=== PATIENT | female | born 1965 | race Caucasian/White ===

== ENCOUNTER → 2019-09-13 12:57 | Outpatient (BNVA) | payer OTHER, SELFPAY | PROVIDERS: Family Provider Family Medicine; PCP Family Medicine; Visit Provider Specialist | DX: M50.10 Cervical disc disorder with radiculopathy, unspecified cervical region; M51.16 Intervertebral disc disorders with radiculopathy, lumbar region; S06.0X9D Concussion with loss of consciousness of unspecified duration, subsequent encounter; X58.XXXD Exposure to other specified factors, subsequent encounter | CPT/HCPCS: 99214 ==

== ENCOUNTER → 2019-12-06 15:15 | Outpatient (BNVA) | payer OTHER, SELFPAY | PROVIDERS: Family Provider Family Medicine; PCP Family Medicine; Visit Provider Specialist | DX: F07.81 Postconcussional syndrome (principal); M51.16 Intervertebral disc disorders with radiculopathy, lumbar region | CPT/HCPCS: 99213 ==

== ENCOUNTER 2020-03-16 09:45 | Outpatient (CLI) | payer OTHER, SELFPAY ==
--- NOTE | 2020-03-16 09:30 | IR_ITS ---
WS: [id number] EXAM: LUMBAR AND CERVICAL MYELOGRAM DATE OF EXAMINATION: 03/16/2020, 1055 hours COMPARISON: MRI of the lumbar spine and MRI of the cervical spine. HISTORY: Patient is 54 years old with neck pain, right arm pain, low back pain with radiculopathy. REAL ESTATE AGENT: Bandar Downs M.D. FLUOROSCOPY TIME: 2.8 minutes. 13 mL Omnipaque 300 was utilized for the examination. FINDINGS: Procedure was discussed with the patient. Mean wrist discussed were bleeding and infection possible n erve and vascular injury. Possible seizure activity, spinal headache of the thecal sac puncture, poss ible failed procedure. Questions were answered and consent was obtained. Patient was placed on the wy uoroscopic table in a prone position. The lower back was prepped and draped in sterile fashion. 1% li docaine was infiltrated into the skin and subcutaneous tissues followed by advancement of a 22-gauge needle into the thecal sac at the L3-4 level from a left sublaminar approach. With return of clear ce rebral spinal fluid a total of 13 mL of Omnipaque 300 contrast was injected into the thecal sac. Need le was removed and hemostasis was obtained. Multiple spot images as well as overhead imaging was obta ined. The lumbar spine thecal sac is capacious. Exiting nerve sleeves are seen bilaterally L3 and inferiorl y. Erect lateral flexion-extension views shows degenerative spondylosis changes L2-3 and L3-4 levels with disc bulging and slight narrowing the disc space with slight effacement anterior thecal sac. No definite stenosis is seen. Flexion-extension views show no evidence of instability. Imaging of the cervical spine shows normal outline of the thecal sac. On the left no nursing cut off is seen. On the right there is slight cut off of the right C6 nerve sleeve. Crosstable lateral imagin g in the cervical spine is limited. IR/IR myelogram spine cervic/lumb IMPRESSION: Degenerative spondylosis changes at L2-3 and L3-4 levels indenting on the anter ior thecal sac without canal or neural foraminal stenosis. Degenerative spondylosis changes with cut off of the right C6 nerve seen. CT re sults pending.
[2020-03-16] MEDS: iohexol 300 mg/mL 50 mL Btl INTRATHECA (11:22)
--- NOTE | 2020-03-16 11:30 | CT_ITS ---
WS: [id number] EXAM: CT cervical spine w con [id number] DATE OF EXAMINATION: 03/16/2020, 1120 hours COMPARISON: Cervical spine myelogram from the same date as well as cervical spine MRI from 05/16/2019. HISTORY: 54 years old with neck pain and right arm pain. TECHNIQUE: Transaxial computed tomography images obtained through the cervical spine with images viewed in soft tissue and bone window with reconstructions. Iterative reconstruction dose reduction technique was utilized during the performance of the examinat ion. DLP: 3.[address] scans at [facility] use at least one of these dose optimization techniques: automat ed exposure control; mA and/or kV adjustment per patient size (includes targeted exams where dose is matched to clinical indication); or iterative reconstruction. FINDINGS: The visualized inferior intracranial contents are unremarkable. Intrathecal contrast outlined the CSF spaces. Mastoid air cells are pneumatized and well aerated. Predens space and prevertebral soft tiss ue plane are normal. The cervical and upper thoracic cord appears of normal caliber. No extensive deg enerative spondylosis changes C2-3, C3-4 or C4-5 levels. C5-6 level shows degenerative spondylosis changes with slight bilateral uncovertebral joint hypertrop hy changes. The AP diameter of the canal is about 9 mm consistent with mild stenosis. Broad-based dis c herniation at this level flattens the anterior thecal sac. Bilateral uncovertebral joint hypertroph y changes are demonstrated which appears to have slight mass effect upon bilateral C6 nerve sleeves. C6-7, C7-T1 and upper thoracic disc levels are unremarkable. Paraspinal muscular is normal in appearance. Lung apices are clear. Thyroid gland is normal in appear ance. Shotty adenopathy in the neck presumably reactive in nature. CT/CT cervical spine w con [id number] IMPRESSION: Degenerative spondylosis changes C5-6 level with a broad-based shallow disc her niation with mild central canal stenosis and some degree of bilateral neural fo raminal stenosis.
--- NOTE | 2020-03-16 12:00 | CT_ITS ---
WS: [id number] EXAM: CT lumbar spine w con [id number]: Post myelogram DATE OF EXAMINATION: 03/16/2020, 1125 hours COMPARISON: Same-day mammogram. HISTORY: 54 years old with low back pain with right hip and thigh pain with tingling. TECHNIQUE: Transaxial computed tomography images obtained through the lower thoracic, lumbar spine upper sacral segments with images viewed in soft tissue and bone window with reconstructions. Iterative reconstruction dose reduction technique was utilized during the performance of the examinat ion. DLP: 1633.[address] scans at [facility] use at least one of these dose optimization techniques: automat ed exposure control; mA and/or kV adjustment per patient size (includes targeted exams where dose is matched to clinical indication); or iterative reconstruction. FINDINGS: Examination extends from mid T9 level through the S4 segment. Cord ends at the L1 level. Distal cord is normal in appearance. T9-10 and T10-11 disc levels: Normal T11-12: Slight narrowing of the disc space with slight degenerative spondylosis changes with minimal posterior spurring. No protrusion, canal or neural foraminal stenosis. T12-L1 and L1-2 disc levels: Normal. L2-3: Slight narrowing of the disc space with anterior and posterior spurring. No protrusion, canal or neur al foraminal stenosis. L3-4: Minimal degenerative spondylosis changes with minimal anterior spurring. Minimal posterior disc bulging. No protrusion, canal or neural foraminal stenosis. L4-5: Normal discs level other than minimal anterior spurring on the left. L5-S1: There are findings of a disc herniation left paracentral to right lateral recess position exte nding posteriorly with mass effect upon the thecal sac and mass effect upon the right S1 nerve sleeve . Slight calcification posterior annulus of the disc is demonstrated. No canal or neural foraminal st enosis. Paraspinal musculature is fairly normal in appearance. Visualized lower thoracic and abdominal aorta is normal in caliber. CT/CT lumbar spine w con [id number] IMPRESSION: Disc herniation L5-S1 level as described with mass effect upon the thecal sac a s well as the right S1 nerve sleeve. Slight degenerative changes T11-12, L2-3 and L3-4 levels as described.
== END 2020-03-16 09:46 | disposition home or self-care (01) ==
LOC: RADWPI 09:49
PROVIDERS: Family Provider Family Medicine; PCP Family Medicine; Visit Provider Licensed Practical Nurse
DX: M25.551 Pain in right hip (principal); M51.27 Other intervertebral disc displacement, lumbosacral region; M79.601 Pain in right arm; M47.812 Spondylosis without myelopathy or radiculopathy, cervical region; M48.02 Spinal stenosis, cervical region; M47.816 Spondylosis without myelopathy or radiculopathy, lumbar region
CPT/HCPCS: 62305; 72040; 72120; 72126; 72132; Q9967

== ENCOUNTER → 2020-03-28 11:28 | Outpatient (BNVA) | payer OTHER, SELFPAY | PROVIDERS: Family Provider Family Medicine; PCP Family Medicine; Visit Provider Licensed Practical Nurse | DX: M48.02 Spinal stenosis, cervical region (principal); M50.020 Cervical disc disorder with myelopathy, mid-cervical region, unspecified level; G56.03 Carpal tunnel syndrome, bilateral upper limbs; M51.17 Intervertebral disc disorders with radiculopathy, lumbosacral region | CPT/HCPCS: 99214 ==

== ENCOUNTER → 2020-07-09 09:09 | Outpatient (BNVA) | payer OTHER, SELFPAY | PROVIDERS: Family Provider Family Medicine; PCP Family Medicine; Referring Provider Family Medicine; Visit Provider Specialist | DX: G56.03 Carpal tunnel syndrome, bilateral upper limbs (principal) | CPT/HCPCS: 73110 ==

== ENCOUNTER 2020-07-09 13:46 | Outpatient (CLI) | payer OTHER, SELFPAY | END 2020-07-09 13:47 | disposition home or self-care (01) | LOC: SPT 13:46 | PROVIDERS: PCP Family Medicine; Visit Provider Specialist | DX: Z46.89 Encounter for fitting and adjustment of other specified devices (principal); G56.01 Carpal tunnel syndrome, right upper limb | CPT/HCPCS: 87635; L3908 ==

== ENCOUNTER 2020-07-13 05:46 | Day surgery (SDC) | payer OTHER, SELFPAY ==
[2020-07-12 14:46] VITALS: BMI 34.3
[2020-07-13 06:01] VITALS: BP 132/78; PULSE 90; RESP 16; TEMP 36.9; O2SAT 98
[2020-07-13] MEDS: sodium chloride 0.9% 1,000 ML 30 ML IV (06:25)
[2020-07-13] MEDS: scopolamine 1.5 Patch 1 PATCH TRANSDERMA (06:26)
--- NOTE | 2020-07-13 06:29 | P.ANESASSM_ITS ---
Pre-Anesthetic Assessment Pre-Anesthetic Assessment: Height/Weight: Height 1.6 m Weight 87.997 kg Temp Pulse Resp BP Pulse Ox 98.4 F 90 16 132/78 98 07/13/20 06:01 07/13/20 06:01 07/13/20 06:01 07/13/20 06:01 07/13/20 06:01 Preop Diagnosis: Right carpal tunnel syndrome Proposed Procedure: Operation Date: 07/13/20 07:00 Proposed Procedures p right Carpal Tunnel Release 99642 g56.00(Right) - Nola Frank MD Last intake: Intake Last Liquid Date 07/12/20 Last Liquid Time 21:00 Last Solid Date 07/12/20 Last Solid Time 21:00 Social: Social History: Alcohol (occ) and No tobacco Exam: Pre-Anes Outpt Exam: alert, oriented x 3, clear to auscultation bilaterally and regular rate & rhythm Airway: Submandibular: WNL Cervical ROM: WNL MP: 1 Additional comments: teeth ok History/ROS: No significant history except as noted Pulmonary: Pulmonary: None reported CV/HEM: CV/HEM: None reported : : None reported Hepatic: Hepatic: None reported GI: GI: None reported Metabolic: Metabolic: None reported Musc/skel: Musc/skel: Lower Back Pain Neuropsych: Neuropsych: Neuropathy Meds/Allergies Current Medications: Current Medications Generic Name Dose Route Start Last Admin Trade Name Freq PRN Reason Stop Dose Admin Sodium Chloride 1,000 mls @ 30 ml s/hr 07/13/20 06:00 07/13/20 06:25 Sodium Chloride 0.9% IV 07/14/20 05:59 30 mls/hr .Q24H ZAY Administration PFSH Anesthesia PFSH: Medical History Cervical disc disorder with myelopathy of mid-cervical region 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
[2020-07-13] MEDS: CELEcoxib 200 mg Capsule 400 MG PO (06:34)
--- NOTE | 2020-07-13 06:57 | W.PM.OPSUD ---
Surgery/Procedure H&P Update DATE OF PROCEDURE: July 13, 2020 DATE H&P PERFORMED: 07/09/20 H&P UPDATE INFORMATION: I have reviewed H&P completed within last 30 days, I have examined patient prior to procedure, No changes to prior documentation and H&P is in [facility] EMR on date indicated PREOP DIAGNOSIS: Right carpal tunnel syndrome PLANNED PROCEDURE: Operation Date: 07/13/20 07:00 Proposed Procedures p right Carpal Tunnel Release [id number] g56.00(Right) - Nola Frank MD Related Problem List Diagnoses (1) Carpal tunnel syndrome of right wrist:
[2020-07-13 07:51] VITALS: BP 143/74; PULSE 83; RESP 16; TEMP 36.3; O2SAT 96
--- NOTE | 2020-07-13 07:57 | P.OP_ITS ---
Operative Report Date of procedure: July 13, 2020 Pre-op Diagnosis: Right carpal tunnel syndrome Post-op diagnosis: same Procedure Done: Right carpal tunnel release Implants: None Pathology: none sent Surgeon: Nola Frank Marker Delivery: [facility] OR technicians Anesthesia: MAC (With Sheldon block) Estimated blood loss (mL): 5 Tourniquet time (min): 30 Tourniquet time: At 250 mmHg IV fluids (mL): 600 Urine output (mL): 0 Urine output: No Black Complications: None Findings: Compression across the median nerve consistent with carpal tunnel syndrome Condition: stable Disposition: same day Brief History: This 54-year-old woman presented with complaints of symptoms in the right hand consistent with carpal tunnel syndrome. She wished to proceed with carpal tunnel release. Risks and complications were discussed with her. Consents were signed preoperatively. Questions were answered. She was scheduled for the above procedure. Procedure: The patient was brought to the operating theater. The patient had a Sheldon block with MAC. The tourniquet was elevated to 250 mmHg for a total tourniquet time of 30 minutes. The patient was also given Ancef 2 g preoperatively. The arm was then prepped and draped with DuraPrep in usual fashion with the arm draped free. A surgical pause was performed. At the time, the surgical pause, we confirmed the site and side of surgery. We also confirmed the patient's identity, appropriate and timely administration of preoperative antibiotics and preoperative surgical markings. An incision was then made along the thenar crease. The incision crossed the wrist joint in a curvilinear fashion. Dissection continued through skin and soft tissues using a scalpel. The palmaris longus was identified along with the transverse carpal ligament. Each of these was released carefully to avoid injury to the median nerve. We were able to dissect gently into the carpal canal which was noted to be quite tight with significant compression across the median nerve. The nerve was visualized and was an hourglass shape. The canal was subsequently palpated to assure there was no bony encroachment upon the canal. The canal was then palpated distally and proximally to assure that my small finger was passed easily without impingement. Finding this to be so, attention was directed to closure. The wound was irrigated with ropivacaine plain. It was then closed with 3-0 nylon in an interrupted mattress fashion. Sterile dressing was then placed consisting of Xeroform gauze, fluffed fluffs, sterile soft roll, a volar splint, and an Rudi wrap. The tourniquet was released after 30 minutes. There were no complications. There were no specimens. The procedure was well tolerated. Plan is the patient will be discharged home. Associated Problem List Diagnoses (1) Carpal tunnel syndrome of right wrist:
[2020-07-13 08:13] VITALS: BP 122/81; PULSE 77; RESP 16; O2SAT 99
== END 2020-07-13 08:27 | disposition home or self-care (01) ==
PROVIDERS: PCP Family Medicine; Visit Provider Specialist
PROC: (CPT 64721; principal; 2020-07-13 07:00)
DX: G56.01 Carpal tunnel syndrome, right upper limb (principal); Z82.49 Family history of ischemic heart disease and other diseases of the circulatory system
CPT/HCPCS: 64721; 12345; J0131; J0690; J2250; J2704; J3490; J7030

== ENCOUNTER 2020-10-17 13:21 | Outpatient (CLI) | payer OTHER, SELFPAY ==
--- NOTE | 2020-10-17 13:27 | MM_ITS ---
WS: [id number] BILATERAL SCREENING DIGITAL MAMMOGRAM WITH CAD HISTORY: SCREENING COMPARISON: 03/24/2019, 02/02/2018 and 06/17/2016 and 03/23/2015 Bilateral CC and MLO views submitted. Computer aided detection analyzed. Breast composition: There are scattered areas of fibroglandular density. No suspicious masses, microc alcifications or architectural distortion. Asymmetry in the central LEFT breast seen on the CC projec tion has been stable over multiple prior years. MM/[place] [id number] IMPRESSION: BI-RADS: 2-Benign FOLLOW UP: 1 Year Follow-up
== END 2020-10-17 13:22 | disposition home or self-care (01) ==
PROVIDERS: PCP Family Medicine; Visit Provider Obstetrics & Gynecology
DX: Z12.31 Encounter for screening mammogram for malignant neoplasm of breast (principal)
CPT/HCPCS: 77067

== ENCOUNTER → 2021-01-07 07:54 | Outpatient (BNVA) | payer OTHER, SELFPAY | PROVIDERS: PCP Family Medicine; Visit Provider Specialist | DX: G43.909 Migraine, unspecified, not intractable, without status migrainosus (principal); M50.020 Cervical disc disorder with myelopathy, mid-cervical region, unspecified level; G56.02 Carpal tunnel syndrome, left upper limb | CPT/HCPCS: 99213 ==

== ENCOUNTER → 2021-08-22 15:11 | Outpatient (BNVA) | payer OTHER, SELFPAY | PROVIDERS: PCP Family Medicine; Visit Provider Physician Assistant | DX: M50.020 Cervical disc disorder with myelopathy, mid-cervical region, unspecified level (principal) | CPT/HCPCS: 72050 ==

== ENCOUNTER 2021-11-05 15:39 | Outpatient (CLI) | payer OTHER, SELFPAY | END 2021-11-05 15:40 | disposition home or self-care (01) | LOC: SPT 15:39 | PROVIDERS: PCP Family Medicine; Visit Provider Orthopaedic Surgery | DX: Z46.89 Encounter for fitting and adjustment of other specified devices (principal); M47.22 Other spondylosis with radiculopathy, cervical region | CPT/HCPCS: 97760; L0174 ==

== ENCOUNTER 2021-11-29 09:20 | Day surgery (SDC) | payer OTHER, SELFPAY ==
--- NOTE | 2021-11-26 14:11 | ANES.PREANE2 ---
Pre-Anesthetic Assessment Height/Weight: Height 1.6 m Preop Diagnosis: Right carpal tunnel syndrome Operation Date: 11/29/21 10:35 Proposed Procedures p ACDF c5/6 [id number]/64183/m47.22(Not Applicable) - Mando Miller, Familial anesthetic complications: PONV once (after an abdominal surgery) Social No alcohol and No tobacco Exam alert, oriented x 3, clear to auscultation bilaterally and regular rate & rhythm Airway Mallampati: Class I Dentition: full Pulmonary None reported CV/HEM None reported None reported Hepatic None reported GI None reported Metabolic None reported Musc/skel Lower Back Pain Neuropsych Anxiety and Depression Anesthetic Plan ASA status: 2 Anesthesia: General Risk of > 500 ml blood loss (7ml/kg in children): No Medications/Allergies Home Medications Medication Instructions Recorded Confirmed Last Taken Type alprazolam 0.25 mg tablet (Xanax) 0.25 mg PO DAILY PRN 09/13/19 11/05/21 Unknown History fluoxetine 10 mg capsule 10 mg PO DAILY 09/13/19 11/05/21 07/12/20 History spironolactone 25 mg tablet 50 mg PO DAILY tab 09/13/19 11/05/21 07/12/20 History (Aldactone) melatonin 10 mg tablet 10 mg PO BEDTIME 01/17/20 11/05/21 07/12/20 History loratadine 10 mg tablet (Claritin) 10 mg PO DAILY 11/07/20 11/05/21 Unknown History amitriptyline 25 mg tablet 25 mg PO DAILY tab 01/07/21 11/05/21 Unknown History [place] J Collar #1 ea 11/05/21 11/05/21 Unknown Rx Allergies Allergy/AdvReac Type Severity Reaction Status Date / Time [facility] AdvReac nausea/hot Verified 11/05/21 15:05 sensation [facility] Anesthesia Medical History Anxiety and depression Diagnosed in her 40s and has been on medication managed by her primary care provider for many years. Does not see a therapist No pertinent past medical history Denies diabetes, asthma, hypertension, seizures, DVT/PE PCP: Dr. Rivera Postconcussive syndrome Is on Topamax to help with post concussive headaches. Surgical History History of hysterectomy With bilateral salpingo-oophorectomy done by vertical midline infraumbilical incision for benign fibroid performed in 2009 S/P section x 1 -Pfannenstiel incision S/P laparoscopy Take down of adhesions and endometriosis, performed in 1996 Family History Father Hypertension Hyperlipidemia Heart disease Grandmother Breast cancer maternal, diagnosed at age 50 Mother Stroke Grandfather Hypertension paternal Heart disease paternal Denies family history of Colon cancer Ovarian cancer Diabetes Uterine cancer Thyroid condition Social History Smoking and tobacco status: never smoked Alcohol intake: current Alcohol intake frequency: few times a month Household members: spouse Marital status: Current occupational status: employed Current occupation: Refining Equipment Operator [employer] History of recent travel: No Data Anesthesia Cardiac Studies: No Data to Display
[2021-11-26 14:25] VITALS: BMI 34.9
[2021-11-29] VITALS (10 sets, daily range): BP systolic 129–146; BP diastolic 78–94; PULSE 76–96; RESP 14–18; TEMP 36.1–37.2; O2SAT 94–100
--- NOTE | 2021-11-29 | XR_ITS ---
WS: [id number] Cervical spine, C-arm fluoroscopy, 11/29/2021 Clinical Data: cervical spondylosis with radiculopathy Comparison: None. Findings: Dr. Miller performed a anterior cervical disc fusion C5-C6 with a disc spacer at C5-C6. XR/XR cervical spine 3V* [id number] Impression: Anterior cervical disc fusion C5-C6.
--- NOTE | 2021-11-29 | SCC_ITS ---
Procedure done: 1. Anterior diskectomy C5/6 2. Insertion of cage C5/6 3. Instrumentation with anterior plate from C5-C6 4. Use of allograft 11.2 seconds of fluoroscopic guidance, for a cumulative dose of 0.60 mGy, was provided to Dr. Miller by the radiology department. C-arm images of the cervical spine were saved for the patient's permanent record. [facility]ITAL[facility]
--- NOTE | 2021-11-29 09:33 | P.ANESUD_ITS ---
Pre-Anesthetic Update Pre-Anesthetic Assessment: Date of Surgery/Procedure: 11/29/21 Preop [place] gnosis: DDD C5-6 with Radiculopathy Proposed Procedure: Operation Date: 11/29/21 10:35 Proposed Procedures p ACDF c5/6 [id number]/52442/m47.22(Not Applicable) - Mando Miller, DO Any changes to Pre-Anesthetic Assessment?: No Vitals: Temperature 99.0 F 11/29/21 09:32 Temperature Source Temporal Artery S can 11/29/21 09:32 Pulse Rate 91 11/29/21 09:32 Respiratory Rate 18 11/29/21 09:32 Blood Pressure 133/79 11/29/21 09:32 Blood Pressure Chely n 97 11/29/21 09:32 Pulse Oximetry 100 11/29/21 09:32 Oxygen Delivery Me thod 11/29/21 09:32 Exam: Pre-Anes Outpt Exam: alert, oriented x 3, clear to auscultation bilaterally and regular rate & rhythm Cardiac Studies: No Data to Display
--- NOTE | 2021-11-29 09:55 | W.PM.OPSUD ---
Surgery/Procedure H&P Update DATE OF PROCEDURE: November 29, 2021 DATE H&P PERFORMED: 11/05/21 H&P UPDATE INFORMATION: I have reviewed H&P completed within last 30 days, I have examined patient prior to procedure and No changes to prior documentation PREOP DIAGNOSIS: DDD C5-6 with Radiculopathy PLANNED PROCEDURE: Operation Date: 11/29/21 10:35 Proposed Procedures p ACDF c5/6 [id number]/m47.22(Not Applicable) - Mando Miller DO
[2021-11-29] MEDS: scopolamine 1.5 Patch 1 PATCH TRANSDERMA (10:15)
[2021-11-29] MEDS: sodium chloride 0.9% 1,000 ML 30 ML IV (10:21)
--- NOTE | 2021-11-29 12:08 | P.OP_ITS ---
Operative Report Date of procedure: November 29, 2021 Pre-op diagnosis: Preop Diagnosis DDD C5-6 with Radiculopathy Post-op diagnosis: same Procedure done: 1. Anterior diskectomy C5/6 2. Insertion of cage C5/6 3. Instrumentation with anterior plate from C5-C6 4. Use of allograft Surgeon: Mando Miller Estimated blood loss (mL): 5 Procedure: 1. Anterior diskectomy C5/6 2. Insertion of cage C5/6 3. Instrumentation with anterior plate from C5-C6 4. Use of allograft The patient was taken to the operating room, where he underwent general endotracheal anesthesia without complications. He was then positioned supine on the operating table, and all areas of impingement were well padded. The arms were carefully padded and tucked at his sides. A roll was placed between the shoulder blades.. An x-ray was done to determine the appropriate level for the skin incision. The entire neck was then sterilely prepped and draped in the usual fashion. Neuromonitoring was attached prior to prepping. A transverse skin incision was made and carried down to the platysma muscle. This was then split in line with its fibers. Blunt dissection was carried down medial to the carotid sheath and lateral to the trachea and esophagus until the anterior cervical spine was visualized. A needle was placed into a disc and an x-ray was done to determine its location. The longus colli muscles were then elevated bilaterally with the electrocautery unit. Self-retaining retractors were placed deep to the longus colli muscle. Attention was brought to the C5/6 level that was confirmed on x-ray. A caspar pin was placed into the C5 vertebrae and the C6 vertebrae. The disk space was then distracted. The microscope was then brought in. A radical anterior discectomies were performed at C5/6. This included complete removal of the ante rior annulus, nucleus, and posterior annulus. The posterior longitudinal ligament was removed as were the posterior osteophytes. Foraminotomies were then accomplished bilaterally. This was done using a high speed adam, kerrison rongeurs and curretes Once all of this was accomplished, the curved currette was used to check for any residual compression. The central canal was wide open as were the foramen. A high-speed bur was used to remove the cartilaginous endplates above and below the interspace. Bleeding cancellous bone was exposed. The disc space were measured and appropriate size cage were placed sterilely onto the field. Allograft graft was packed into the cages. The cage was then placed and there was good juxtaposition against the bleeding decorticated surfaces and good distraction of each interspace. Attention was brought to the next interspace. The [place] pins were removed. Bone wax was used to prevent any bleeding from occurring at the pin sites. The appropriate size anterior cervical locking plate was chosen and bent into gentle lordosis. Two screws were then placed into each of the vertebral bodies at C5 and C6. There was excellent purchase. A final x-ray was done confirming good position of the hardware and Cages. The locking screws were then applied, also with excellent purchase. Following a final copious irrigation, there was good hemostasis and no dural leaks. The carotid pulse was strong. The wounds were then closed in layers using 2-0 Vicryl suture for the platysma muscle, 2-0 Vicryl suture for the subcutaneous tissue, and 4-0 monocryl suture in a subcuticular skin closure. Glue was placed followed by application of a sterile dressing. The drain was hooked to bulb suction. A soft collar was applied. The patient was then carefully returned to the supine position on his hospital bed where he was reversed and extubated and taken to the recovery room having tolerated the procedure well.
[2021-11-29] MEDS: ondansetron 2 mg/ML SDV 2 mL 4 MG IVP (12:32)
--- NOTE | 2021-11-29 12:46 | ANE.PACU2 ---
Inpatient post-anesthesia follow up: Airway intact: Yes Vital signs: Temperature 97.1 F Pulse Rate 85 Respiratory Rate 16 Blood Pressure 142/89 Pulse Oximetry 95 Oxygen Delivery Me thod Room Air Oxygen Flow Rate 3.0 Fraction of Inspir ed Oxygen Hydration adequate: Yes Nausea and vomiting: Yes Pain level: 3 Mental status: Baseline
[2021-11-29] MEDS: hetastarch 30 GM/500 ML PREMIX IV (13:03)
[2021-11-29] MEDS: HYDROcodone-acetaminophen 5-325 mg Tablet 1 TAB PO (14:01)
== END 2021-11-29 14:25 | disposition home or self-care (01) ==
PROVIDERS: PCP Family Medicine; Visit Provider Orthopaedic Surgery
PROC: 0RB30ZZ Excision of Cervical Vertebral Disc, Open Approach (ICD-10-PCS; CPT 22551; principal; 2021-11-29 10:25)
DX: M54.12 Radiculopathy, cervical region (principal)
CPT/HCPCS: 20930; 22551; 22845; 22853; 72040; 76000; C1713; C9359; J0330; J0690; J1100; J1170; J1200; J2250; J2405; J2704; J2710; J3010; J3490; J7030

== ENCOUNTER → 2022-01-09 10:06 | Outpatient (BNVA) | payer OTHER, SELFPAY | PROVIDERS: PCP Family Medicine; Visit Provider Orthopaedic Surgery | DX: Z98.890 Other specified postprocedural states (principal); M54.9 Dorsalgia, unspecified; M51.16 Intervertebral disc disorders with radiculopathy, lumbar region; Z48.89 Encounter for other specified surgical aftercare | CPT/HCPCS: 72040; 72110 ==

== ENCOUNTER → 2022-02-20 11:12 | Outpatient (BNVA) | payer OTHER, SELFPAY | PROVIDERS: PCP Family Medicine; Visit Provider Orthopaedic Surgery | DX: Z47.89 Encounter for other orthopedic aftercare (principal); Z98.1 Arthrodesis status | CPT/HCPCS: 72040 ==

== ENCOUNTER → 2022-10-01 15:15 | Outpatient (BNVA) | payer OTHER, SELFPAY | PROVIDERS: PCP Family Medicine; Visit Provider Family Medicine | DX: Z00.00 Encounter for general adult medical examination without abnormal findings (principal) | CPT/HCPCS: 80053; 80061; 83036; 85025 ==